=== PATIENT | female | born 1940 | race Caucasian/White ===

== ENCOUNTER 2016-12-14 18:38 | Emergency (ER) | payer MEDICARE ==
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
[2016-12-14 23:48] VITALS: BP 132/80
== END 2016-12-14 23:45 | disposition home or self-care (01) ==
LOC: ER 18:38
DX: M54.5 Low back pain (principal); M54.9 Dorsalgia, unspecified; Y09 Assault by unspecified means
CPT/HCPCS: 72070; 72110; 99284